=== PATIENT | female | born 1965 | race Two or more races ===

== ENCOUNTER 2021-02-06 22:55 | Emergency (ER) | payer SELFPAY ==
[2021-02-06] MEDS ORDERED: Dexamethasone 10 MG/ML SDV IVPUSH ONE (23:26)
--- NOTE | 2021-02-06 23:26 | EDM.PDOC ---
ED HPI GENERAL MEDICAL PROBLEM - General Chief Complaint: General Stated Complaint: COVID POS WEAK DIZZY PAIN IN NECK Time Seen by Provider: 02/06/21 23:19 Source of Information: Reports: Patient History Limitations: Reports: No Limitations - History of Present Illness INITIAL COMMENTS - FREE TEXT/NARRATIVE: 55-year-old female of is primarily [place]-speaking descent presents to the ED due to increased shortness of breath and inability to eat. Generalized weakness. Nonproductive cough. Denies vomiting or diarrhea. Severe loss of appetite. Diagnosed with COVID-19 illness last January 29. She continues to run a fever. Generalized myalgia and headache. Cough is nonproductive or occasional white sputum. No hemoptysis. Denies any pleuritic chest pain. Onset: Gradual Onset Date: 01/27/21 (Diagnosed with COVID-19 positivity on January 29) Duration: Day(s):, Constant, Getting Worse Location: Reports: Head, Chest (Dyspnea with nonproductive cough.), Generalized (Generalized myalgia), Other (Headache severe loss of appetite. Persistent fever) Quality: Reports: Ache (Generalized aching) Severity: Moderate Improves with: Reports: None Worsens with: Reports: Movement (Increased dyspnea on minimal exertion) Context: Reports: Other. Denies: Activity, Exercise, Lifting, Sick Contact, Trauma Associated Symptoms: Reports: Cough, cough w sputum (None. Occasional white sputum), Fever/Chills (Persistent fever), Headaches ( chills at initial onset but not now), Loss of Appetite, Malaise ( persistent headache), Shortness of Breath, Weakness. Denies: Confusion (COVID-19 illness diagnosed last January 29), Chest Pain, Diaphoresis, Nausea/Vomiting, Rash, Seizure, Syncope Treatments [employer]: Reports: Acetaminophen Neck Pain Score (Numeric/FACES): 6 - Related Data Allergies Allergy/AdvReac Type Severity Reaction Status Date / Time No Known Allergies Allergy Verified 02/06/21 23:14 Home Meds: Home Meds Metoprolol Succinate 0 mg PO DAILY 02/06/21 [History] lisinopriL [Lisinopril] 0 mg PO DAILY 02/06/21 [History] dexAMETHasone [Decadron] 6 mg PO BID #8 tablet 02/07/21 [Rx] Past Medical History Endocrine/Metabolic History: Reports: Obesity/BMI 30+ Social & Family History - Living Situation & Occupation Living situation: Reports: ED ROS GENERAL - Review of Systems Review Of Systems: See Below Constitutional: Reports: Fever, Chills, Malaise, Weakness, Fatigue, Decreased Appetite, Weight Loss HEENT: Reports: No Symptoms Respiratory: Reports: Shortness of Breath, Cough, Sputum. Denies: Wheezing, Pleuritic Chest Pain Cardiovascular: Reports: Dyspnea on Exertion, Lightheadedness. Denies: Chest Pain (Occasional white to clear sputum), Blood Pressure Problem, Claudication, Edema, Orthopnea, Palpitations Endocrine: Reports: Fatigue GI/Abdominal: Reports: Decreased Appetite. Denies: Diarrhea, Nausea, Vomiting : Reports: Other (Urine is dark jarrod in color.) Musculoskeletal: Reports: Muscle Pain (Generalized myalgia particular large muscles neck low back thighs) Skin: Reports: No Symptoms Neurological: Reports: Dizziness, Headache, Difficulty Walking, Weakness. Denies: Confusion, Numbness, Syncope, Tingling Psychiatric: Reports: No Symptoms (Due to weakness and headache) Hematologic/Lymphatic: Reports: No Symptoms Immunologic: Reports: No Symptoms ED EXAM, GENERAL - Physical Exam Exam: See Below Exam Limited By: No Limitations General Appearance: Alert, WD/WN, Mild Distress, Other (She appears ill. O2 sats are 90% on room air. Temperature is 37.2 but she feels much warmer than this. Heart rate was 94 and sinus respiratory is 18 with O2 sats of 90% BP 10/16/1974) Eye Exam: Bilateral Eye: Normal Inspection (No scleral icterus or blepharal pallor.), PERRL Ears: Normal TMs Throat/Mouth: Normal Inspection, Normal Lips, Normal Oropharynx ( mildly.), Other (Tongue is dry and coated) Head: Atraumatic, Normocephalic Neck: Normal Inspection, Supple, Non-Tender, Full Range of Motion. No: Carotid Bruit, Lymphadenopathy (L), Lymphadenopathy (R) Respiratory/Chest: No Respiratory Distress, Lungs Clear, Normal Breath Sounds, No Accessory Muscle Use Cardiovascular: Normal Peripheral Pulses, Regular Rate, Rhythm, No Edema, No Gallop, No Murmur, No Rub Peripheral Pulses: 3+: Carotid (L), Carotid (R), Posterior Tibial (L), Posterior Tibial (R), Dorsalis Pedis (L), Dorsalis Pedis (R) GI/Abdominal: Normal Bowel Sounds, Soft, Non-Tender, No Organomegaly, No Mass, Pelvis Stable, Other (Mildly obese.). No: Guarding, Rigid, Rebound, Tender Back Exam: Normal Inspection, Full Range of Motion. No: CVA Tenderness (L), CVA Tenderness (R) Extremities: Normal Inspection, Normal Range of Motion, No Pedal Edema, Other (Tender to palpation of musculature lower extremities back muscles) Neurological: Alert, Oriented, CN II-XII Intact, Normal Cognition Psychiatric: Normal Mood, Flat Affect Skin Exam: Warm, Dry, Intact, Normal Color, No Rash #1 Interpretation EKG Date: 02/06/21 Time: 23:36 Rhythm: NSR Rate (Beats/Min): 89 Salter Path: Normal P-Wave: Enlarged QRS: Other (Left atrial hypertrophy early R wave transition consider right ventricular appeared to be versus septal hypertrophy pattern) ST-T: Other (Nonspecific T wave flattening aVF) QT: Normal EKG Interpretation Comments: Abnormal ECG Course - Vital Signs Last Recorded V/S: Last Vital Signs Temp 37.2 C 02/06/21 23:46 Pulse 84 02/07/21 00:30 Resp 18 02/06/21 23:09 BP 101/59 L 02/07/21 00:30 Pulse Ox 93 L 02/07/21 00:30 - Orders/Labs/Meds Orders: Active Orders 24 hr Category Date Time Status EKG Documentation Completion [RC] STAT Care 02/06/21 23:27 Active Nurse Communication: Isolation [RC] ASDIRECTED Care 02/07/21 01:12 Active Chest 1V Frontal [CR] Stat Exams 02/06/21 23:27 Taken CULTURE BLOOD [BC] Stat Lab 02/06/21 23:40 Received CULTURE BLOOD [BC] Stat Lab 02/06/21 23:55 Received Dextrose 5%-0.9% NaCl [Dextrose 5%-Normal Saline] 1,000 Med 02/06/21 23:30 Active ml IV ASDIRECTED Blood Culture x2 Reflex Set [OM.PC] Stat Oth 02/06/21 23:28 Ordered Isolation [COMM] Routine Oth 02/06/21 23:30 Ordered Medication Orders Dextrose/Sodium Chloride (Dextrose 5%-Normal Saline) 1,000 mls @ 125 mls/hr IV ASDIRECTED DARRYL Last Admin: 02/06/21 23:40 Dose: 125 mls/hr Documented by: DEXTER Labs: Laboratory Tests 02/06/21 02/06/21 02/06/21 Range/Units 23:17 23:17 23:17 WBC 3.79 L (3.98-10.04) K/mm3 RBC 5.17 (3.98-5.22) M/mm3 Hgb 14.4 (11.2-15.7) gm/dl Hct 43.5 (34.1-44.9) % MCV 84.1 (79.4-94.8) fl MCH 27.9 (25.6-32.2) pg MCHC 33.1 (32.2-35.5) g/dl RDW Std Deviation 40.7 (36.4-46.3) fL Plt Count 163 L (182-369) K/mm3 MPV 10.4 (9.4-12.3) fl Neutrophils % (Manual) 63 H (40-60) % Band Neutrophils % 0 (0-10) % Lymphocytes % (Manual) 28 (20-40) % Atypical Lymphs % 0 % Monocytes % (Manual) 9 (2-10) % Eosinophils % (Manual) 0 L (0.7-5.8) % Basophils % (Manual) 0 L (0.1-1.2) Platelet Estimate Adequate RBC Morph Comment Normal PT 10.4 (9.7-12.0) SECONDS INR 0.97 APTT 29.7 (21.7-31.4) SECONDS D-Dimer, Quantitative 0.27 (0.19-0.50) mg/L Puncture Site ABG pH (7.35-7.45) ABG pCO2 (35.0-45.0) mmHg ABG pO2 (80.0-100.0) mmHg ABG HCO3 (22.0-26.0) meq/L ABG O2 Saturation (96.0-97.0) % ABG Base Excess (-2-2.0) Andrea Test A-a Gradient mmHg O2 Delivery Device FiO2 (21.00-100.00) % Sodium (136-145) mEq/L Potassium (3.5-5.1) mEq/L Chloride (98-107) mEq/L Carbon Dioxide (21-32) mEq/L Anion Gap (5-15) BUN (7-18) mg/dL Creatinine (0.55-1.02) mg/dL Est Cr Clr Drug Dosing mL/min Estimated GFR (MDRD) (>60) mL/min BUN/Creatinine Ratio (14-18) Glucose (70-99) mg/dL Calcium (8.5-10.1) mg/dL Magnesium 1.8 (1.8-2.4) mg/dL Total Bilirubin (0.2-1.0) mg/dL AST (15-37) U/L ALT (14-59) U/L Alkaline Phosphatase (46-116) U/L Lactate Dehydrogenase 229 (81-234) U/L Troponin I < 0.017 (0.00-0.056) ng/mL C-Reactive Protein 9.8 H* (<1.0) mg/dL NT-Pro-B Natriuret Pep (0-125) pg/mL Total Protein (6.4-8.2) g/dl Albumin (3.4-5.0) g/dl Globulin gm/dL Albumin/Globulin Ratio (1-2) 02/06/21 02/06/21 02/06/21 Range/Units 23:17 23:17 23:42 WBC (3.98-10.04) K/mm3 RBC (3.98-5.22) M/mm3 Hgb (11.2-15.7) gm/dl Hct (34.1-44.9) % MCV (79.4-94.8) fl MCH (25.6-32.2) pg MCHC (32.2-35.5) g/dl RDW Std Deviation (36.4-46.3) fL Plt Count (182-369) K/mm3 MPV (9.4-12.3) fl Neutrophils % (Manual) (40-60) % Band Neutrophils % (0-10) % Lymphocytes % (Manual) (20-40) % Atypical Lymphs % % Monocytes % (Manual) (2-10) % Eosinophils % (Manual) (0.7-5.8) % Basophils % (Manual) (0.1-1.2) Platelet Estimate RBC Morph Comment PT (9.7-12.0) SECONDS INR APTT (21.7-31.4) SECONDS D-Dimer, Quantitative (0.19-0.50) mg/L Puncture Site Rt radial ABG pH 7.46 H (7.35-7.45) ABG pCO2 35.4 (35.0-45.0) mmHg ABG pO2 63.0 L (80.0-100.0) mmHg ABG HCO3 25.0 (22.0-26.0) meq/L ABG O2 Saturation 90.7 L (96.0-97.0) % ABG Base Excess 2.0 (-2-2.0) Andrea Test Positive A-a Gradient 42 mmHg O2 Delivery Device Room air FiO2 21.00 (21.00-100.00) % Sodium 133 L (136-145) mEq/L Potassium 3.7 (3.5-5.1) mEq/L Chloride 95 L (98-107) mEq/L Carbon Dioxide 23 (21-32) mEq/L Anion Gap 18.7 H (5-15) BUN 12 (7-18) mg/dL Creatinine 0.9 (0.55-1.02) mg/dL Est Cr Clr Drug Dosing 54.55 mL/min Estimated GFR (MDRD) > 60 (>60) mL/min BUN/Creatinine Ratio 13.3 L (14-18) Glucose 111 H (70-99) mg/dL Calcium 8.5 (8.5-10.1) mg/dL Magnesium (1.8-2.4) mg/dL Total Bilirubin 0.6 (0.2-1.0) mg/dL AST 38 H (15-37) U/L ALT 31 (14-59) U/L Alkaline Phosphatase 85 (46-116) U/L Lactate Dehydrogenase (81-234) U/L Troponin I (0.00-0.056) ng/mL C-Reactive Protein (<1.0) mg/dL NT-Pro-B Natriuret Pep 100 (0-125) pg/mL Total Protein 7.9 (6.4-8.2) g/dl Albumin 3.4 (3.4-5.0) g/dl Globulin 4.5 gm/dL Albumin/Globulin Ratio 0.8 L (1-2) Meds: Medications Generic Name Dose Route Start Last Admin Trade Name Freq PRN Reason Stop Dose Admin Dextrose/Sodium Chloride 1,000 mls @ 125 mls/hr 02/06/21 23:30 02/06/21 23:40 Dextrose 5%-Normal Saline IV 125 mls/hr ASDIRECTED DARRYL Administration Discontinued Medications Generic Name Dose Route Start Last Admin Trade Name Francy PRN Reason Stop Dose Admin Acetaminophen 975 mg 02/06/21 23:29 02/06/21 23:46 Acetaminophen 325 Mg Tab PO 02/06/21 23:30 975 mg ONETIME ONE Administration Dexamethasone 6 mg 02/06/21 23:26 02/06/21 23:40 Dexamethasone 10 Mg/Ml Sdv IVPUSH 02/06/21 23:27 6 mg ONETIME ONE Administration Dexamethasone 6 mg 02/07/21 01:00 Dexamethasone 4 Mg Tab PO 02/07/21 01:01 ONETIME ONE - Radiology Interpretation Free Text/Narrative:: 55-year-old female of primarily [place]-speaking descent presents to the ED with increased with increased dyspnea at rest. Marked loss of appetite. Generalized weakness and myalgia. Occasional nonproductive cough. Diagnosed with COVID-19 illness on January 29 last Monday. Is unclear whether she received any monoclonal antibody therapy. Plan will be to give her dexamethasone 6 mg IV at this time. She wants to think about whether she wants to come into the hospital or receive IV remdesivir. - Re-Assessments/Exams Free Text/Narrative Re-Assessment/Exam: 02/06/21: 23:50: Portable chest x-ray reveals poor inspirational view. Evidence of infiltrate right middle lobe right lower lobe and left lower lobe compatible with viral pneumonia combined with COVID-19 illness. There is no pneumothorax no pleural effusion. Cardiac silhouette is within normal limits. 02/07/21 00:59 At this time patient has decided not to receive IV remdesivir. Her O2 sats are 91 to 92% on room air and are likely to worsen over time. However she is on day 8 of illness which is usually the worst. She is willing to take dexamethasone 6 mg twice daily which will be used for the next 5 days. The dosage will be provided through the ED tonight for tomorrow. Patient had a [id number] discussion with nurse and the patient's daughter who speaks fluent Arabic and the patient is adamant that she does not wish to receive intravenous remdesivir or be admitted to the hospital at this time. 02/07/21 01:01 White count is low at 3.79. The differential 63% neutrophils and no bands cells. Hemoglobin is 14.4 with hematocrit of 43.5. Platelet count is 163,000 low normal. PT is 10.4 with an INR of 0.97 and a PTT of 29.7. D-dimer remains normal at 0.27. Blood gases reveal a pH of 7.46 and a PCO2 of 35.4 PO2 was 63.0 which is low. Bicarb was 25 O2 sats were 90.7 on room air. Magnesium is 1.8 with a LDH of 229. Troponin I is less than 0.017 C-reactive protein elevated at 9.8 BNP 100. Departure - Departure Time of Disposition: :20 Disposition: Home, Self-Care 01 Condition: Fair Clinical Impression: Pneumonia due to COVID-19 virus, Volume depletion - Discharge Information *PRESCRIPTION DRUG MONITORING PROGRAM REVIEWED*: Not Applicable *COPY OF PRESCRIPTION DRUG MONITORING REPORT IN PATIENT [place]: Not Applicable Prescriptions: dexAMETHasone [Decadron] 6 mg PO BID #8 tablet Instructions: COVID-19 Frequently Asked Questions, COVID-19 Vaccine Information, What You Should Know About COVID-19 to Protect Yourself and Others - CDC, 10 Things You Can Do to Manage Your COVID-19 Symptoms at Home - CDC, COVID-19: Quarantine vs. Isolation - CDC, Prevent the Spread of COVID-19 if You Are Sick - CDC Referrals: PCP,None [Primary Care Provider] - Forms: ED Department Discharge Additional Instructions: Evaluation in the emergency room tonight in regards to increased shortness of breath, weakness, dizziness and persistent fever due to COVID-19 illness that was diagnosed on January 29. Chest x-ray done in the emergency room today does reveal COVID-19 pneumonia involving the right lower lobe and the left lower lobe of your lungs. You were found to be mildly short of oxygen with O2 sats of 91% on room air at rest. If your oxygen level goes under 88% we usually place you on oxygen support. Lab test proved to be normal other than showing mild dehydration. There were no blood clots in your lungs no sign of heart related illness and no sign of kidney related illness from the COVID-19 illness. You elected to be treated with intravenous fluids for rehydration in the emergency room and the first dose of dexamethasone steroid 6 mg was given intravenously. You will need to take 6 mg of dexamethasone by mouth twice daily for the next 4- 1/2 days to help bring the inflammation in your lungs under control. The good news is that most patients are starting to get better by day 10 of illness. You are still considered contagious to others until day 14 of illness which would be February 12. You elected not to be admitted to the hospital and to receive antiviral medication remdesivir which would be given once daily for 5 consecutive days if you were hospitalized. You can always return to the hospital if your condition worsens in any way. You will need to case picker your prescription for dexamethasone 6 mg tablets from [facility] pharmacy across the [address] from [facility] after 12 PM tomorrow since it is the only drugstore open on Monday. A dose of 6 mg dexamethasone will be provided to you from the emergency room to take first thing this morning around 0800 hrs. Sepsis Event Note (ED) - Evaluation Sepsis Screening Result: Possible Sepsis Risk - Focused Exam Vital Signs: Vital Signs Temp Temp Pulse Resp BP Pulse Ox 02/07/21 00:30 84 101/59 L 93 L 02/07/21 00:15 86 104/55 L 94 L 02/06/21 23:46 37.2 C 02/06/21 23:09 37.2 C 94 18 129/75 91 L - My Orders Last 24 Hours: My Active Orders 02/06/21 23:27 EKG Documentation Completion [RC] STAT Chest 1V Frontal [CR] Stat 02/06/21 23:28 Blood Culture x2 Reflex Set [OM.PC] Stat 02/06/21 23:30 Dextrose 5%-0.9% NaCl [Dextrose 5%-Normal Saline] 1,000 ml IV ASDIRECTED Isolation [COMM] Routine 02/06/21 23:40 CULTURE BLOOD [BC] Stat 02/06/21 23:55 CULTURE BLOOD [BC] Stat 02/07/21 01:12 Nurse Communication: Isolation [RC] ASDIRECTED - Assessment/Plan Last 24 Hours: My Active Orders 02/06/21 23:27 EKG Documentation Completion [RC] STAT Chest 1V Frontal [CR] Stat 02/06/21 23:28 Blood Culture x2 Reflex Set [OM.PC] Stat 02/06/21 23:30 Dextrose 5%-0.9% NaCl [Dextrose 5%-Normal Saline] 1,000 ml IV ASDIRECTED Isolation [COMM] Routine 02/06/21 23:40 CULTURE BLOOD [BC] Stat 02/06/21 23:55 CULTURE BLOOD [BC] Stat 02/07/21 01:12 Nurse Communication: Isolation [RC] ASDIRECTED
[2021-02-06] MEDS ORDERED: Acetaminophen 325 MG Tab PO ONE (23:29)
[2021-02-06] MEDS ORDERED: Dextrose 5%-0.9% NaCl 1,000 ML IV SCH (23:30)
[2021-02-07] MEDS ORDERED: Dexamethasone 4 MG Tab PO ONE (01:00)
--- NOTE | 2021-02-07 10:43 | CR ---
Chest: Portable view of the chest was obtained. Comparison: No prior chest imaging is available. Slight parenchymal densities are seen within the chest. Findings have the appearance of a mild Covid pneumonia. Heart size and mediastinum are normal. No acute osseous finding is appreciated. Impression: 1. Patchy areas of increased density having the appearance of Covid pneumonia. Diagnostic code #3
== END 2021-02-07 01:25 | disposition home or self-care (01) ==
LOC: JD.ED 22:55
DX: U07.1 COVID-19 (principal); J12.82 Pneumonia due to coronavirus disease 2019; E86.9 Volume depletion, unspecified; E66.9 Obesity, unspecified; Z79.899 Other long term (current) drug therapy; Z68.38 Body mass index [BMI] 38.0-38.9, adult
CPT/HCPCS: 36415; 36600; 71045; 80053; 82803; 83615; 83735; 83880; 84484; 85007; 85027; 85379; 85610; 85730; 86140; 87040; 93005; 96374; 99285; A9270; J1100; J7042; J8540; 93010; 99284